=== PATIENT | female | born 1980 | race Caucasian/White ===

== ENCOUNTER 2017-05-21 07:13 | Emergency (ER) | payer MEDICAID ==
[~2017-05-21] VITALS: Ht 149.9 cm; Wt 39.5 kg
[2017-05-21 07:19] VITALS: BP 182/119
== END 2017-05-21 07:40 | disposition left against medical advice (07) ==
LOC: ED 07:13
DX: L29.9 Pruritus, unspecified (principal); I10 Essential (primary) hypertension; Z98.51 Tubal ligation status

== ENCOUNTER 2019-08-20 03:18 | Emergency (ER) | payer SELFPAY ==
[~2019-08-20] VITALS: Ht 152.4 cm; Wt 49.9 kg
[2019-08-20 03:23] VITALS: Ht 152.4 cm; Wt 49.9 kg
[2019-08-20 04:05] LABS: CALCIUM 8.5 mg/dL (8.5-10.1); CREATININE SERUM 1.5 mg/dL (0.6-1.0); POTASSIUM SERUM 3.3 mmol/L (3.5-5.1)
[2019-08-20 04:12] LABS: BILIRUBIN TOTAL 0.18 mg/dL (0.20-1.00); TOTAL PROTEIN, SERUM 7.1 g/dL (6.4-8.2)
[2019-08-20 04:17] LABS: ALBUMIN 3.2 g/dL (3.4-5.0)
[2019-08-20 04:32] LABS: BASOPHIL % 0.9 % (0-2); PLATELET COUNT 268 x10^3mcL (130-400)
[2019-08-20 04:33] LABS: RED CELL DISTRIBUTION WIDTH 14.8 % (11.5-14.5)
[2019-08-20 06:00] VITALS: BP 195/125
[2019-08-20 06:21] LABS: AMPHETAMINE QUAL UR POSITIVE (See below)
== END 2019-08-20 06:00 | disposition home or self-care (01) ==
LOC: ED 03:18
PROVIDERS: Student in an Organized Health Care Education/Training Program
DX: R07.89 Other chest pain (principal); R10.13 Epigastric pain; R06.02 Shortness of breath; I12.9 Hypertensive chronic kidney disease with stage 1 through stage 4 chronic kidney disease, or unspecified chronic kidney disease; N18.9 Chronic kidney disease, unspecified; F19.10 Other psychoactive substance abuse, uncomplicated
CPT/HCPCS: 83880; J2270; J2405; J7030; Q0092

== ENCOUNTER 2019-08-30 20:23 | Emergency (ER) | payer SELFPAY ==
[~2019-08-30] VITALS: Ht 152.4 cm; Wt 50.3 kg
[2019-08-30 20:30] VITALS: Ht 152.4 cm; Wt 50.3 kg
[2019-08-30 22:54] LABS: BASOPHIL % 0.8 % (0-2); PLATELET COUNT 344 x10^3mcL (130-400)
[2019-08-30 22:59] LABS: RED CELL DISTRIBUTION WIDTH 15.7 % (11.5-14.5)
[2019-08-31 02:38] VITALS: BP 175/104
== END 2019-08-31 02:38 | disposition home or self-care (01) ==
LOC: ED 20:23
PROVIDERS: Emergency Medicine
DX: N93.8 Other specified abnormal uterine and vaginal bleeding (principal); I10 Essential (primary) hypertension; Z76.0 Encounter for issue of repeat prescription
CPT/HCPCS: 36415; J1885

== ENCOUNTER 2019-11-03 10:41 | Emergency (ER) | payer SELFPAY ==
[~2019-11-03] VITALS: Ht 152.4 cm; Wt 51.3 kg
[2019-11-03 10:53] VITALS: Ht 152.4 cm; Wt 51.3 kg
[2019-11-03 12:18] LABS: BASOPHIL % 0.4 % (0-2); PLATELET COUNT 267 x10^3mcL (130-400); RED CELL DISTRIBUTION WIDTH 13.9 % (11.5-14.5)
[2019-11-03 12:34] LABS: CALCIUM 8.2 mg/dL (8.5-10.1); CREATININE SERUM 1.5 mg/dL (0.6-1.0); POTASSIUM SERUM 3.2 mmol/L (3.5-5.1)
[2019-11-03 12:37] LABS: BILIRUBIN TOTAL 0.22 mg/dL (0.20-1.00); TOTAL PROTEIN, SERUM 6.5 g/dL (6.4-8.2)
[2019-11-03 12:39] LABS: ALBUMIN 2.6 g/dL (3.4-5.0)
[2019-11-03 13:38] VITALS: BP 173/110
== END 2019-11-03 13:38 | disposition home or self-care (01) ==
LOC: ED 10:41
PROVIDERS: Emergency Medicine
DX: O20.0 Threatened abortion (principal); Z3A.01 Less than 8 weeks gestation of pregnancy
CPT/HCPCS: J0360

== ENCOUNTER 2019-11-04 12:41 | Emergency (ER) | payer SELFPAY ==
[~2019-11-04] VITALS: Ht 152.4 cm; Wt 49.9 kg
[2019-11-04 12:48] VITALS: Ht 152.4 cm; Wt 49.9 kg
[2019-11-04 13:22] LABS: PLATELET COUNT 346 x10^3mcL (130-400)
[2019-11-04 13:29] LABS: BASOPHIL % 2.9 % (0-2)
[2019-11-04 14:12] LABS: UA SPECIFIC GRAVITY 1.025 (1.005-1.035); microscopic required? YES; urine erythrocyte 3+ (NEGATIVE)
[2019-11-04 16:23] VITALS: BP 159/81
== END 2019-11-04 16:23 | disposition home or self-care (01) ==
LOC: ED 12:41
PROVIDERS: Emergency Medicine
DX: O20.0 Threatened abortion (principal); I10 Essential (primary) hypertension; Z98.890 Other specified postprocedural states
CPT/HCPCS: 36415

== ENCOUNTER 2019-11-08 20:10 | Emergency (ER) | payer SELFPAY ==
[~2019-11-08] VITALS: Ht 152.4 cm; Wt 49.9 kg
[2019-11-08 20:21] VITALS: Ht 152.4 cm; Wt 49.9 kg
[2019-11-08 21:29] LABS: BASOPHIL % 0.4 % (0-2); PLATELET COUNT 281 x10^3mcL (130-400); RED CELL DISTRIBUTION WIDTH 14.4 % (11.5-14.5)
[2019-11-08 22:10] VITALS: BP 156/98
== END 2019-11-08 22:10 | disposition home or self-care (01) ==
LOC: ED 20:10
PROVIDERS: Emergency Medicine
DX: O03.9 Complete or unspecified spontaneous abortion without complication (principal); I10 Essential (primary) hypertension
CPT/HCPCS: 36415